=== PATIENT | female | born 1975 | race Two or more races ===

== ENCOUNTER 2020-07-22 13:33 | Outpatient (CLI) | payer OTHER | END 2020-07-22 13:44 | disposition home or self-care (01) | LOC: MAMO-SONO 13:33 | PROVIDERS: ATTEND Specialist | DX: D25.1 Intramural leiomyoma of uterus (principal); Z12.31 Encounter for screening mammogram for malignant neoplasm of breast; R10.2 Pelvic and perineal pain; N64.59 Other signs and symptoms in breast ==

== ENCOUNTER 2021-02-18 06:56 | Day surgery (SDC) | payer OTHER ==
[~2021-02-18 06:56] MED LIST: METFORMIN HCL500 M3 PO
== END 2021-02-18 16:15 | disposition home or self-care (01) ==
LOC: CIR.AMB 06:56
PROVIDERS: ATTEND Specialist
DX: N84.0 Polyp of corpus uteri (principal); Z20.822 Contact with and (suspected) exposure to COVID-19